=== PATIENT | male | born 1985 | race Caucasian/White ===

== ENCOUNTER 2024-12-06 01:19 | Outpatient (CLI) | payer BC, SELFPAY ==
[2024-12-06 10:14] LABS: ALT 33 U/L (16-63); AST 20 U/L (15-37); Albumin 4.2 g/dL (3.4-5.0); Alkaline Phosphatase 99 U/L (46-116); Anion Gap 5.7 mmol/L (3-11); BUN 12 mg/dL (7-18); Bilirubin, Total 0.5 mg/dL (0.2-1.0); CO2 30.3 mmol/L (21.0-32.0); Calcium 9.2 mg/dL (8.5-10.1); Calculated LDL 84 mg/dL (<100); Chloride 104 mmol/L (98-107); Cholesterol 149 mg/dL (<200); Estimated GFR 97.58 (mL/min/1.73m2); Glucose 101 mg/dL (74-106); HDL Cholesterol 36 mg/dL (>or=40); Potassium 4.2 mmol/L (3.5-5.1); Sodium 140 mmol/L (136-145); Total Protein 7.7 g/dL (6.4-8.2); Triglyceride 147 mg/dL (<150)
== END 2024-12-06 01:20 | disposition home or self-care (01) ==
LOC: LBO 01:19
PROVIDERS: PCP Nurse Practitioner Family; Visit Provider Nurse Practitioner Family
DX: Z13.220 Encounter for screening for lipoid disorders (principal)
CPT/HCPCS: 36415; 80053; 80061